=== PATIENT | female | born 1990 | race American Indian/Alaskan Native ===

== ENCOUNTER 2017-08-16 22:19 | Emergency (ER) | payer MEDICAID ==
[2017-08-16 22:25] VITALS: BP 106/70
[2017-08-16 23:39] LABS: Bilirubin,Urine NEG (Negative); Blood,Urine NEG (Negative); Color,Urine Yellow (Yellow); Mucus,Urine FEW /HPF; Protein,Urine <15 mg/dL mg/dL (Negative); Urobilinogen,Urine < 2.0 mg/dL (<2.0)
--- NOTE | 2017-08-16 23:39 | Emergency Department Report ---
ED Female HPI - General Chief complaint: Urogenital-Female Stated complaint: LEFT EYE PAIN,BURNING WHEN URINATING Time Seen by Provider: 08/16/17 23:04 Source: patient Mode of arrival: Ambulatory Limitations: No Limitations - History of Present Illness Initial comments: pt is a 27 y/o aaf who presents with dysuria 5 days patient is sexually active is here for same treatment patient denies vaginal discharge no back pain, there is no fever no chills no nausea vomiting no abdominal pain patient has secondary complaint of pink left patient states she was seen at [facility] on yesterday discharge with eyedrops MD Complaint: dysuria Onset/Timin -: days(s) Radiation: non-radiating Severity: moderate Severity scale (0 -10): 3 Quality: burning Consistency: intermittent Improves with: none Worsens with: urination Are you Now?: No Last Menstrual Period: 08/03/17 EDC: 05/10/18 Associated Symptoms: dysuria. denies: vaginal discharge, vaginal bleeding, abdominal pain, nausea/vomiting, fever/chills, loss of appetite, hematuria, rash , seizure, shortness of breath, syncope, weakness - Related Data Sexually active: Yes Previous Rx's Medication Instructions Recorded Last Taken Type Ciprofloxacin 0.3% (Nf) 2 drops OP Q3H #5 ml 08/17/17 Unknown Rx [Ciprofloxacin OPTH] Ibuprofen 800 mg PO TID PRN #30 tablet 08/17/17 Unknown Rx metroNIDAZOLE [Flagyl] 500 mg PO Q12HR #14 tab 08/17/17 Unknown Rx Allergies Allergy/AdvReac Type Severity Reaction Status Date / Time No Known Allergies Allergy Unverified 08/16/17 22:21 ED Review of Systems ROS: Stated complaint: LEFT EYE PAIN,BURNING WHEN URINATING Other details as noted in HPI Constitutional: denies: chills, fever Eyes: denies: eye pain, eye discharge, vision change ENT: denies: ear pain, throat pain Respiratory: denies: cough, shortness of breath, wheezing Cardiovascular: denies: chest pain, palpitations Endocrine: no symptoms reported Gastrointestinal: denies: abdominal pain, nausea, diarrhea Genitourinary: urgency, dysuria, frequency. denies: hematuria, discharge, abnormal menses, dyspareunia Musculoskeletal: denies: back pain, joint swelling, arthralgia Skin: denies: rash, lesions Neurological: denies: headache, weakness, paresthesias Psychiatric: denies: anxiety, depression Hematological/Lymphatic: denies: easy bleeding, easy bruising ED Past Medical Hx - Past Medical History Hx Asthma: Yes - Surgical History Past Surgical History?: No - Medications Home Medications: Home Medications Medication Instructions Recorded Confirmed Last Taken Type Ciprofloxacin 0.3% (Nf) 2 drops OP Q3H #5 ml 08/17/17 Unknown Rx [Ciprofloxacin OPTH] Ibuprofen 800 mg PO TID PRN #30 tablet 08/17/17 Unknown Rx metroNIDAZOLE [Flagyl] 500 mg PO Q12HR #14 tab 08/17/17 Unknown Rx ED Physical Exam - General Limitations: No Limitations General appearance: alert, in no apparent distress - Head Head exam: Present: atraumatic, normocephalic - Eye Eye exam: Present: normal appearance, PERRL, EOMI, conjunctival injection, periorbital swelling. Absent: scleral icterus, nystagmus, periorbital tenderness Pupils: Present: normal accommodation - Expanded Eye Exam Expanded Eyelids: Erythema: Left, Swelling: Left Pupils: Regular, Round: Bilateral, Reactive: Bilateral Sclera/Conjunctival: Injection: Left, Exudate: Left Anterior chamber: Normal Inspection: Bilateral Posterior chamber: Deferred: Bilateral Visual acuity (R) = 20/: 30 Visual acuity (L) = 20/: 30 - ENT ENT exam: Present: normal exam, mucous membranes moist - Neck Neck exam: Present: normal inspection - Respiratory Respiratory exam: Present: normal lung sounds bilaterally. Absent: respiratory distress - Cardiovascular Cardiovascular Exam: Present: regular rate, normal rhythm. Absent: systolic murmur, diastolic murmur, rubs, gallop - GI/Abdominal GI/Abdominal exam: Present: soft, normal bowel sounds. Absent: distended, tenderness, guarding, rebound, rigid, organomegaly, mass, bruit, pulsatile mass , hernia - Rectal Rectal exam: Present: deferred - External exam: Present: other (exam deferred per patient ) - Extremities Exam Extremities exam: Present: normal inspection, full ROM. Absent: tenderness - Back Exam Back exam: Present: normal inspection, full ROM. Absent: tenderness - Neurological Exam Neurological exam: Present: alert, oriented X3 - Psychiatric Psychiatric exam: Present: normal affect, normal mood - Skin Skin exam: Present: warm, dry, intact, normal color. Absent: rash ED Course Vital Signs 08/16/17 22:23 Temperature 98.2 F Pulse Rate 114 H Respiratory 18 Rate Blood Pressure 106/70 [Left] O2 Sat by Pulse 99 Oximetry ED Medical Decision Making - Lab Data Laboratory Results - last 24 hr 08/16/17 23:15 Urine Color Yellow Urine Turbidity Clear Urine pH 5.0 Ur Specific [place] 1.018 Urine Protein <15 mg/dl Urine Glucose (UA) Neg Urine Ketones Neg Urine Blood Neg Urine Nitrite Neg Urine Bilirubin Neg Urine Urobilinogen < 2.0 Ur Leukocyte Esterase Neg Urine WBC (Auto) 1.0 Urine RBC (Auto) 1.0 U Epithel Cells (Auto) 5.0 Urine Mucus Few Urine HCG, Qual Negative - Medical Decision Making pt is a 27 y/o aaf who presents with dysuria 5 days patient is sexually active is here for same treatment patient denies vaginal discharge no back pain, there is no fever no chills no nausea vomiting no abdominal pain patient has secondary complaint of pink left patient states she was seen at [facility] on yesterday discharge with eyedrops ua: note mild bacteria gc / ch cultures pending given partners is pos for sti will tx for sti, cipro eye gtts follow up with opthalmology, and health departmenf for hiv screening pt given rocepin , azithromycin, dc to home in stable condition with rx for flagyl, cipro opth pt verbalized agreement and understanding of same. Critical care attestation.: If time is entered above; I have spent that time in minutes in the direct care of this critically ill patient, excluding procedure time. ED Disposition Clinical Impression: STD exposure Conjunctivitis Qualifiers: Conjunctivitis type: acute Acute conjunctivitis type: bacterial Laterality: left Qualified Code(s): H10.32 - Unspecified acute conjunctivitis, left eye Disposition: DC-01 TO HOME OR SELFCARE Is pt being admited?: No Does the pt Need Aspirin: No Condition: Good Instructions: Sexually Transmitted Diseases (ED), Conjunctivitis (ED) Prescriptions: Ciprofloxacin 0.3% (Nf) [Ciprofloxacin OPTH] 2 drops OP Q3H #5 ml Ibuprofen 800 mg PO TID PRN #30 tablet PRN Reason: Pain metroNIDAZOLE [Flagyl] 500 mg PO Q12HR #14 tab Referrals: TAE KRISHNAMURTHY MD [Staff Physician] - 3-5 Days [facility] [Outside] - 3-5 Days Forms: Work/School Release Form(ED) Time of Disposition: 00:18
[2017-08-16 23:43] LABS: HCG Qualitative,Urine Negative (Negative)
[2017-08-17] MEDS ORDERED: XYLOCAINE 1% MPF 5 mL INFILTRATI ONE (00:18)
[2017-08-17] MEDS ORDERED: ZITHROMAX PO ONE (00:18)
[2017-08-17] MEDS ORDERED: ROCEPHIN IM ONE (00:18)
== END 2017-08-17 00:50 | disposition home or self-care (01) ==
LOC: ED 22:19
DX: H10.32 Unspecified acute conjunctivitis, left eye (principal); Z20.2 Contact with and (suspected) exposure to infections with a predominantly sexual mode of transmission; J45.909 Unspecified asthma, uncomplicated
CPT/HCPCS: 81001; 81025; 96372; 99283; J0696